=== PATIENT | male | born 1970 | race Caucasian/White ===

== ENCOUNTER 2018-08-15 19:42 | Emergency (ER) | payer OTHER ==
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
[2018-08-15 20:20] VITALS: BP 127/79
== END 2018-08-15 20:15 | disposition home or self-care (01) ==
DX: S16.1XXA Strain of muscle, fascia and tendon at neck level, initial encounter (principal); V89.0XXA Person injured in unspecified motor-vehicle accident, nontraffic, initial encounter; Y92.9 Unspecified place or not applicable; Y93.9 Activity, unspecified; Y99.9 Unspecified external cause status